=== PATIENT | male | born 1950 | race Caucasian/White ===

== ENCOUNTER 2017-10-25 09:16 | Day surgery (SDC) | payer OTHER ==
[2017-10-25] MEDS ORDERED: LIDOCAINE 1% 20 ML MDV ID STA (09:38)
[2017-10-25] MEDS ORDERED: DIPRIVAN 20 ML VIAL IVP ONE (11:30)
[2017-10-25 16:22] VITALS: BP 128/67; TEMP 98.6
--- NOTE | 2017-10-26 10:29 | OP ---
INDICATIONS FOR PROCEDURE: 67-year-old gentleman presents for colonoscopy exam. He is scheduled for a screening exam. He has a family history of colon polyps involving his brother who was in his 50s and his mother had colon cancer at age 55. MEDICATIONS: SEE ANESTHESIA NOTES. PROCEDURE: COLONOSCOPY. REPORT: The risks, benefits, alternatives and limitations were discussed in detail with the patient. Informed consent was obtained. After adequate sedation was achieved, a digital rectal exam revealed good tone, no masses. The colonoscope was introduced into the rectum and advanced under direct visual guidance to the cecum. The cecum was identified by the appendiceal orifice and IC valve. I then slowly withdrew the scope in a circumferential manner examining the mucosa quite carefully. I looked on the proximal and distal side of folds and flexures as best as possible. I was able to retroflex the scope in the right colon and left colon to increase visualization. The colonic mucosa was unremarkable its entire length including on retroflex view of the anal canal. The prep was good. The withdrawal time was 7 minutes and 21 seconds. The patient tolerated the procedure well with stable vital signs and pulse oximetry throughout. IMPRESSION: 1. NORMAL COLONOSCOPY EXAM RECOMMENDATIONS: 1. High fiber diet. 2. Office visit as needed. 3. Colonoscopy examination again in 5 years, sooner if there are any signs or symptoms to indicate otherwise. CC: DR. JANES CAMACHO
== END 2017-10-25 12:40 | disposition home or self-care (01) ==
LOC: SURG 09:16
PROVIDERS: ATTEND Internal Medicine Gastroenterology
DX: Z12.11 Encounter for screening for malignant neoplasm of colon (principal); Z83.71 Family history of colonic polyps
CPT/HCPCS: 00812; G0121